=== PATIENT | female | born 1970 | race Caucasian/White ===

== ENCOUNTER 2025-10-30 15:31 | Outpatient (CLI) | payer OTHER | END 2025-10-30 15:32 | disposition home or self-care (01) | LOC: CSHRAD 15:31 | PROVIDERS: ATTEND Nurse Practitioner Family | DX: R07.9 Chest pain, unspecified (principal); M25.511 Pain in right shoulder; M75.81 Other shoulder lesions, right shoulder | CPT/HCPCS: 71046 ==